=== PATIENT | female | born 1985 | race American Indian/Alaskan Native ===

== ENCOUNTER 2016-05-09 00:22 | Emergency (ER) | payer OTHER ==
--- NOTE | 2016-05-09 06:05 | Emergency Department Report ---
Abscess Boil HPI - HPI Chief Complaint: Skin/Abscess/Foreign Body Stated Complaint: SPIDER BITE Time Seen by Provider: 05/09/16 04:56 Duration: 3 Days Location: Lower Extremity Severity: Mild History: Yes Pain, Yes Insect Bite, No Fever, No Purulent Drainage, No Numbness , No Foreign Body, No Previous History HPI: 30-year-old female presents with complaint of 3 days of pain redness and swelling to her posterior left thigh region above her left knee. Patient states she may have been bitten by a spider or insect in this area 4 days ago. Area is red, erythematous mechoopda surrounding small abscess visible as patient is pointing out the lesion to me during my exam. Patient denies any fever or chills no difficulty ranging her left knee, area of cellulitis and abscesses above left knee and posterior aspect of thigh. Home Medications: Previous Rx's Medication Instructions Recorded Last Taken Type Cephalexin [Keflex] 500 mg PO Q12HR #14 cap 05/09/16 Unknown Rx Ibuprofen [Motrin] 600 mg PO Q8H PRN #30 tablet 05/09/16 Unknown Rx Sulfamethoxazole/Trimethoprim 1 each PO BID #14 tablet 05/09/16 Unknown Rx [Bactrim DS TAB] Allergies/Adverse Reactions: Allergies Allergy/AdvReac Type Severity Reaction Status Date / Time No Known Allergies Allergy Verified 05/09/16 00:25 ED Review of Systems ROS: Stated complaint: SPIDER BITE Other details as noted in HPI Constitutional: denies: chills, fever Eyes: denies: eye pain, eye discharge, vision change ENT: denies: ear pain, throat pain Respiratory: denies: cough, shortness of breath, wheezing Cardiovascular: denies: chest pain, palpitations Endocrine: no symptoms reported Gastrointestinal: denies: abdominal pain, nausea, diarrhea Genitourinary: denies: urgency, dysuria, discharge Musculoskeletal: denies: back pain, joint swelling, arthralgia Skin: as per HPI. denies: rash, lesions Neurological: denies: headache, weakness, paresthesias Psychiatric: denies: anxiety, depression Hematological/Lymphatic: denies: easy bleeding, easy bruising ED Past Medical Hx - Past Medical History Previous Medical History?: No - Surgical History Past Surgical History?: No - Social History Smoking Status: Never Smoker Substance Use Type: Alcohol - Medications Home Medications: Home Medications Medication Instructions Recorded Confirmed Last Taken Type Cephalexin [Keflex] 500 mg PO Q12HR #14 cap 05/09/16 Unknown Rx Ibuprofen [Motrin] 600 mg PO Q8H PRN #30 tablet 05/09/16 Unknown Rx Sulfamethoxazole/Trimethoprim 1 each PO BID #14 tablet 05/09/16 Unknown Rx [Bactrim DS TAB] ED Abscess Boil Physical Exam - Exam General: Vital signs noted. No distress. Alert and acting appropriately. Front/Back of Body, Lg (Color): 1 - Area of erythema/induration approximately 8 cm in diameter small central abscess with visible purulent head approximately 1-2 cm in size, palpable fluctuance underneath Size: 2 cm Exam: Yes Tenderness, Yes Fluctuance, Yes Surrounding Cellulites/Erythema (area of cellulitis diameter approximately 8 cm surrounding abscess, hyperesthesia skin skin indurated) I & D Note - I & D Note I & D Note: Area infiltrated with 1% lidocaine approximately 3 mL. Good anesthesia achieved. Small vertical incision made approximately 1 cm, immediate pus drainage approximately one to 2 mL's pus. Wound culture collected and sent. Minimal pain minimal bleeding, procedure tolerated well. Wound packed with 2 inches of 1/4 inch iodoform gauze ED Course Vital Signs 05/09/16 00:26 Temperature 98.4 F Pulse Rate 95 H Respiratory 16 Rate Blood Pressure 112/70 O2 Sat by Pulse 99 Oximetry Critical care attestation.: If time is entered above; I have spent that time in minutes in the direct care of this critically ill patient, excluding procedure time. ED Medical Decision Making - Medical Decision Making A/P: Left lower extremity abscess and cellulitis 1-abscess successfully incised and drained, wound culture sent 2-patient will be empirically covered with Bactrim and Keflex 7 days twice a day 3-Motrin when necessary for pain 4-I advised patient to remove the iodoform gauze from wound in 12-24 hours, very small amounts. Advised patient to return to the ED if abscess re- accumulates if she experiences fever or chills or if area of cellulitis spreads beyond the marked borders, area marked with a skin pen. Patient understood these instructions clearly expressed understanding 5-follow up with primary care doctor ED Disposition Clinical Impression: Abscess, Cellulitis of left leg Disposition: DISCHARGED TO HOME OR SELFCARE Is pt being admited?: No Does the pt Need Aspirin: No Condition: Stable Instructions: Abscess Incision and Drainage (ED), Cellulitis (ED) Prescriptions: Cephalexin [Keflex] 500 mg PO Q12HR #14 cap Ibuprofen [Motrin] 600 mg PO Q8H PRN #30 tablet PRN Reason: Pain Sulfamethoxazole/Trimethoprim [Bactrim DS TAB] 1 each PO BID #14 tablet Referrals: [facility] [Outside] - 3-5 Days Forms: Work/School Release Form(ED) Time of Disposition: 06:35
[2016-05-09 06:40] VITALS: BP 123/79
== END 2016-05-09 06:38 | disposition home or self-care (01) ==
LOC: ED 00:22
DX: L03.116 Cellulitis of left lower limb (principal)
CPT/HCPCS: 87076; 87116; 87186